=== PATIENT | male | born 1965 | race African-American/Black ===

== ENCOUNTER 2017-12-23 14:23 | Inpatient (IN) | payer OTHER ==
[2017-12-23 16:01] VITALS: BMI 25.0
--- NOTE | 2017-12-23 16:24 | HP ---
Admission [facility] Chief Complaint: Rehab Services Allergies/Adverse Reactions: Allergies Allergy/AdvReac Type Severity Reaction Status Date / Time No Known Allergies Allergy Verified 07/10/15 12:12 History of Present Illness: 52 y.o. man with a history of alcohol and crack-cocaine dependence is here seeking rehab services. He reports he last completed detox and rehab in 06/2017 at [facility]. Longest period of sobriety has been 7 years. Exam Limitations: No Limitations - Ebola screening Have you traveled outside of the country in the last 21 days: No (N) Have you had contact with anyone from an Ebola affected area: No Have you been sick,other than usual withdrawal symptoms: No Do you have a fever: No - Review of Systems Constitutional: Unintentional Wgt. Loss EENT: reports: Blurred Vision Respiratory: reports: Shortness of Breath Cardiac: reports: No Symptoms Reported GI: reports: Diarrhea : reports: No Symptoms Reported Musculoskeletal: reports: Back Pain Integumentary: reports: No Symptoms Reported Neuro: reports: Numbness (Peripheral neuropathy) Endocrine: reports: Other (Borderline diabetic) Hematology: reports: No Symptoms Reported Psychiatric: reports: Orientated x3 Other Systems: Reviewed and Negative Patient History - Patient Medical History Hx Anemia: No Hx Asthma: No Hx Chronic Obstructive Pulmonary Disease (COPD): No Hx Cancer: No Hx Cardiac Disorders: Yes (H/o afib ) Hx Congestive Heart Failure: No Hx Hypertension: No Hx Hypercholesterolemia: No Hx Pacemaker: No HX Cerebrovascular Accident: No Hx Seizures: No Hx Dementia: No Hx Diabetes: No Hx Gastrointestinal Disorders: Yes (GERD) Hx Liver Disease: No Hx Genitourinary Disorders: No Hx Sexually Transmitted Disorders: Yes (Hx of gonnorhea.) Hx Renal Disease (ESRD): No Hx Thyroid Disease: No Hx Human Immunodeficiency Virus (HIV): No Hx Hepatitis C: No Hx Depression: No Hx Suicide Attempt: No Hx Bipolar Disorder: No Hx Schizophrenia: No - Patient Surgical History Past Surgical History: Yes Hx Orthopedic Surgery: Yes (L arm fx sx in 2003) Other Surgical History: R inguinal hernia repair in 2000 - PPD History Previous Implant?: No (02/23/17 CXR RESULTS: WNL; NO ACTIVE PULMONARY DISEAE; NO TB ) - Reproductive History Patient is a Female of Child Bearing Age (11 -55 yrs old): No - Smoking Cessation Smoking history: Current every day smoker Have you smoked in the past 12 months: Yes Aproximately how many cigarettes per day: 10 Hx Chewing Tobacco Use: No Initiated information on smoking cessation: Yes 'Breaking Loose' booklet given: 12/23/17 - Substance & Tx. History Hx Alcohol Use: Yes Hx Substance Use: Yes Substance Use Type: Alcohol, Cocaine Hx Substance Use Treatment: Yes (DETOX/REHAB: 06/2017 AT [facility] ) - Substances Abused Alcohol Route: Oral Frequency: 3-6 times per week Amount used: 2-3 6-PACKS OF BEER Age of first use: 14 Date of Last Use: 12/21/17 Crack Route: Inhalation Frequency: Daily Amount used: $400 Age of first use: 23 Date of Last Use: 12/21/17 Family Disease History - Family Disease History Family Disease History: Other: Father (drug and alcohol depen) Admission Physical Exam [facility] - Vital Signs Vital Signs: Vital Signs - 24 hr 12/23/17 15:59 Temperature 96.9 F L Pulse Rate 58 L Respiratory 17 Rate Blood Pressure 155/87 - Physical General Appearance: Yes: Disheveled, Anxious HEENTM: Yes: Normocephalic, Normal Voice, Other (Hard of hearing) Respiratory: Yes: Chest Non-Tender, Lungs Clear, Normal Breath Sounds Neck: Yes: Other Breast: Yes: Breast Exam Deferred Cardiology: Yes: Regular Rate, S1, S2 Abdominal: Yes: Normal Bowel Sounds, Non Tender, Flat Back: Yes: Normal Inspection Musculoskeletal: Yes: Within Normal Limits Extremities: Yes: Normal Inspection, Normal Range of Motion Neurological: Yes: Fully Oriented, Alert, Motor Strength 5/5 Integumentary: Yes: Within Normal Limits, Normal Color, Dry Lymphatic: Yes: Within Normal Limits - Diagnostic (1) Nicotine dependence Current Visit: Yes Status: Chronic (2) Afib Current Visit: Yes Status: Resolved (3) Alcohol dependence with uncomplicated withdrawal Current Visit: Yes Status: Chronic (4) Hearing loss Current Visit: Yes Status: Chronic Qualifiers: Laterality: bilateral Qualified Code(s): H91.93 - Unspecified hearing loss , bilateral (5) Cocaine dependence with withdrawal Current Visit: Yes Status: Chronic Cleared for Admission [facility] - Detox or Rehab [facility] Level of Care: Observation Bed Claeared for Rehab Admission: Yes [facility] Breath Alcohol Content Breath Alcohol Content: 0 Urine Drug Screen - Results Drug Screen Negative: No Urine Drug Screen Results: THC-Marijuana, AMBER-Cocaine Inpatient Rehab Admission - Initial Determination Are CD services needed?: Yes Free of communicable disease: Yes Not in need of hospitalization: Yes - Rehab Admission Criteria Previous failed treatment: Yes Poor recovery environment: Yes Comorbidities: Yes Lacks judgement: Yes Patient is meeting Inpatient Rehab admission criteria:: Yes
[2017-12-23] MEDS ORDERED: guaiFENesin/D-METHORPHAN HB 10 ML UNIT-DOSE CUPS PO PRN (16:45)
[2017-12-23] MEDS ORDERED: LOPERAMIDE HCL 2 MG CAPSULE PO PRN (16:45)
[2017-12-23] MEDS ORDERED: MENTHOL/PHENOL 1 EACH UD MM PRN (16:45)
[2017-12-23] MEDS ORDERED: NICOTINE POLACRILEX 2 MG GUM BC PRN (16:45)
[2017-12-23] MEDS ORDERED: MAGNESIUM HYDROX 2400MG/30ML ORAL SUSPENSION 30 ML CUP PO PRN (16:45)
[2017-12-23] MEDS ORDERED: ACETAMINOPHEN 325 MG TABLET (FP) PO PRN (16:45)
[2017-12-23] MEDS ORDERED: MAGNESIUM CITRATE 300 ML BOTTLE PO PRN (16:45)
[2017-12-23] MEDS ORDERED: hydrOXYzine PAMOATE 50 MG CAPSULE (FP) PO PRN (16:45)
[2017-12-23] MEDS ORDERED: P-EPHED 60MG/TRIPROLIDI 2.5MG TABLET PO PRN (16:45)
[2017-12-23] MEDS: THIAMINE HCL 100 MG TABLET (FP) PO SCH (21:24)
[2017-12-24] MEDS: IBUPROFEN 400 MG TABLET (FP) PO PRN ×2 (07:04→20:26)
--- NOTE | 2017-12-24 09:47 | EKG ---
Test Reason : Blood Pressure : / mmHG Vent. Rate : 061 BPM Atrial Rate : 061 BPM P-R Int : 174 ms QRS Dur : 080 ms QT Int : 428 ms P-R-T Axes : 062 058 039 degrees QTc Int : 430 ms NORMAL SINUS RHYTHM POSSIBLE LEFT ATRIAL ENLARGEMENT NO PREVIOUS ECGS AVAILABLE Confirmed by JUNE OCHOA MD ([id number]) on 12/24/2017 9:47:01 AM Referred By: Confirmed By:JUNE OCHOA MD
[2017-12-24 09:57] LABS: HEMATOCRIT 41.8 % (35.4-49); HEMOGLOBIN 13.6 GM/dL (11.7-16.9); MCH 26.7 pg (25.7-33.7); MCHC 32.6 g/dl (32.0-35.9); PLATELET COUNT 150 K/MM3 (134-434); RBC 5.09 M/mm3 (4.00-5.60); RDW 12.9 % (11.9-15.9); WHITE BLOOD COUNT 3.1 K/mm3 (4.0-10.0)
[2017-12-24 10:00] LABS: ALBUMIN 3.6 g/dl (3.4-5.0); ANION GAP 9 (8-16); BLOOD UREA NITROGEN 14 mg/dL (7-18); CALCIUM 8.7 mg/dL (8.5-10.1); CHLORIDE 107 mmol/L (98-107); CO2 27 mmol/L (21-32); GLUCOSE,RANDOM 120 mg/dL (74-106); POTASSIUM 3.8 mmol/L (3.5-5.1); SODIUM 143 mmol/L (136-145)
[2017-12-24] MEDS: NICOTINE 14 MG/24 HOURS TOPICAL PATCH TD SCH (10:08)
[2017-12-24] MEDS: PRENATAL VITAMINS W/ FOLIC ACID TABLET (FP) PO SCH (10:08)
[2017-12-24] MEDS: ASPIRIN 81 MG CHEWABLE TABLETS PO SCH (10:08)
[2017-12-24 10:09] LABS: ALK PHOS 59 U/L (45-117); BILIRUBIN,TOTAL 0.2 mg/dL (0.2-1.0); CREATININE 1.3 mg/dL (0.7-1.3); SGPT/ALT 22 U/L (12-78); TOT PROT 6.5 g/dl (6.4-8.2)
[2017-12-24 10:14] LABS: SGOT/AST 17 U/L (15-37)
[2017-12-24] MEDS: THIAMINE HCL 100 MG TABLET (FP) PO SCH (23:24)
[2017-12-25] MEDS: PRENATAL VITAMINS W/ FOLIC ACID TABLET (FP) PO SCH (10:17)
[2017-12-25] MEDS: NICOTINE 14 MG/24 HOURS TOPICAL PATCH TD SCH (10:17)
[2017-12-25] MEDS: ASPIRIN 81 MG CHEWABLE TABLETS PO SCH (10:17)
[2017-12-25 14:38] LABS: URINE APPEARANCE CLEAR; URINE COLOR YELLOW
[2017-12-25 14:39] LABS: URINE BILIRUBIN NEGATIVE (<2.0 mg/dL); URINE GLUCOSE (UA) NEGATIVE (NEGATIVE); URINE KETONE NEGATIVE (NEGATIVE); URINE LEUK ESTERASE NEGATIVE (NEGATIVE); URINE NITRITE NEGATIVE (NEGATIVE); URINE PROTEIN NEGATIVE (NEGATIVE); URINE UROBILINOGEN 0.2 mg/dL (0.2-1.0)
[2017-12-25] MEDS: IBUPROFEN 400 MG TABLET (FP) PO PRN (19:12)
[2017-12-25] MEDS: THIAMINE HCL 100 MG TABLET (FP) PO SCH (21:35)
[2017-12-26] MEDS: ASPIRIN 81 MG CHEWABLE TABLETS PO SCH (10:33)
[2017-12-26] MEDS: PRENATAL VITAMINS W/ FOLIC ACID TABLET (FP) PO SCH (10:34)
[2017-12-26] MEDS: NICOTINE 14 MG/24 HOURS TOPICAL PATCH TD SCH (10:34)
[2017-12-26] MEDS: IBUPROFEN 400 MG TABLET (FP) PO PRN (18:55)
[2017-12-26] MEDS: THIAMINE HCL 100 MG TABLET (FP) PO SCH (21:42)
[2017-12-26] MEDS: MAG HYDROX/AL HYDROX/SIMETH 30 ML UNIT-DOSE CUP PO PRN (23:55)
[2017-12-27] MEDS: MAG HYDROX/AL HYDROX/SIMETH 30 ML UNIT-DOSE CUP PO PRN (08:52)
[2017-12-27] MEDS: NICOTINE 14 MG/24 HOURS TOPICAL PATCH TD SCH (10:48)
[2017-12-27] MEDS: PRENATAL VITAMINS W/ FOLIC ACID TABLET (FP) PO SCH (10:48)
[2017-12-27] MEDS: ASPIRIN 81 MG CHEWABLE TABLETS PO SCH (10:48)
[2017-12-27] MEDS ORDERED: ONDANSETRON *ODT* 4 MG TABLET SL PRN (12:16)
--- NOTE | 2017-12-27 12:17 | PN ---
[facility] Progress Note Note: Vital Signs Temperature 98.7 F 12/27/17 07:05 Pulse Rate 55 L 12/27/17 07:05 Respiratory Rate 18 12/27/17 07:05 Blood Pressure 113/55 12/27/17 07:05 O2 Sat by Pulse Oximetry (%) Laboratory Last Values WBC 3.1 K/mm3 (4.0-10.0) L 12/24/17 08:00 RBC 5.09 M/mm3 (4.00-5.60) 12/24/17 08:00 Hgb 13.6 GM/dL (11.7-16.9) 12/24/17 08:00 Hct 41.8 % (35.4-49) 12/24/17 08:00 MCV 82.0 fl (80-96) 12/24/17 08:00 MCH 26.7 pg (25.7-33.7) 12/24/17 08:00 MCHC 32.6 g/dl (32.0-35.9) 12/24/17 08:00 RDW 12.9 % (11.9-15.9) 12/24/17 08:00 Plt Count 150 K/MM3 (134-434) 12/24/17 08:00 MPV 10.0 fl (7.5-11.1) 12/24/17 08:00 Sodium 143 mmol/L (136-145) 12/24/17 08:00 Potassium 3.8 mmol/L (3.5-5.1) 12/24/17 08:00 Chloride 107 mmol/L (98-107) 12/24/17 08:00 Carbon Dioxide 27 mmol/L (21-32) 12/24/17 08:00 Anion Gap 9 (8-16) 12/24/17 08:00 BUN 14 mg/dL (7-18) 12/24/17 08:00 Creatinine 1.3 mg/dL (0.7-1.3) 12/24/17 08:00 Creat Clearance w eGFR 58.20 (>60) 12/24/17 08:00 Random Glucose 120 mg/dL (74-106) H 12/24/17 08:00 Calcium 8.7 mg/dL (8.5-10.1) 12/24/17 08:00 Total Bilirubin 0.2 mg/dL (0.2-1.0) 12/24/17 08:00 AST 17 U/L (15-37) D 12/24/17 08:00 ALT 22 U/L (12-78) D 12/24/17 08:00 Alkaline Phosphatase 59 U/L (45-117) 12/24/17 08:00 Total Protein 6.5 g/dl (6.4-8.2) 12/24/17 08:00 Albumin 3.6 g/dl (3.4-5.0) 12/24/17 08:00 Urine Color Yellow 12/25/17 13:47 Urine Appearance Clear 12/25/17 13:47 Urine pH 7.0 (5.0-8.0) 12/25/17 13:47 Ur Specific [place] 1.010 (1.001-1.035) 12/25/17 13:47 Urine Protein Negative (NEGATIVE) 12/25/17 13:47 Urine Glucose (UA) Negative (NEGATIVE) 12/25/17 13:47 Urine Ketones Negative (NEGATIVE) 12/25/17 13:47 Urine Blood Negative (NEGATIVE) 12/25/17 13:47 Urine Nitrite Negative (NEGATIVE) 12/25/17 13:47 Urine Bilirubin Negative (<2.0 mg/dL) 12/25/17 13:47 Urine Urobilinogen 0.2 mg/dL (0.2-1.0) 12/25/17 13:47 Ur Leukocyte Esterase Negative (NEGATIVE) 12/25/17 13:47 RPR Titer Nonreactive (NONREACTIVE) 12/24/17 08:00 Hep C Ab Diagnostic <0.1 s/co ratio (0.0-0.9) 12/24/17 08:00 Liver Fibrosis Interp (.) 12/24/17 08:00 HIV 1&2 Antibody Screen Negative 12/24/17 08:00 HIV P24 Antigen Negative 12/24/17 08:00 c/o of nausea and vomiting zofran PRN fluids as tolerated continue to monitor
[2017-12-27] MEDS: THIAMINE HCL 100 MG TABLET (FP) PO SCH (22:09)
[2017-12-27] MEDS: COLLOIDAL OATMEAL 1 BAR EACH TP PRN (22:34)
[2017-12-28] MEDS: ASPIRIN 81 MG CHEWABLE TABLETS PO SCH (09:47)
[2017-12-28] MEDS: PRENATAL VITAMINS W/ FOLIC ACID TABLET (FP) PO SCH (09:47)
[2017-12-28] MEDS: NICOTINE 14 MG/24 HOURS TOPICAL PATCH TD SCH (09:48)
[2017-12-28] MEDS: THIAMINE HCL 100 MG TABLET (FP) PO SCH (21:14)
[2017-12-29] MEDS: ASPIRIN 81 MG CHEWABLE TABLETS PO SCH (10:49)
[2017-12-29] MEDS: PRENATAL VITAMINS W/ FOLIC ACID TABLET (FP) PO SCH (10:50)
[2017-12-29] MEDS: NICOTINE 14 MG/24 HOURS TOPICAL PATCH TD SCH (10:50)
[2017-12-29] MEDS: IBUPROFEN 400 MG TABLET (FP) PO PRN (12:09)
--- NOTE | 2017-12-29 13:06 | PN ---
[facility] Progress Note Note: c/o of itchy rash on face. Vital Signs Temperature 97.7 F 12/29/17 06:41 Pulse Rate 45 L 12/29/17 06:41 Respiratory Rate 18 12/29/17 06:41 Blood Pressure 125/73 12/29/17 06:41 O2 Sat by Pulse Oximetry (%) Laboratory Last Values WBC 3.1 K/mm3 (4.0-10.0) L 12/24/17 08:00 RBC 5.09 M/mm3 (4.00-5.60) 12/24/17 08:00 Hgb 13.6 GM/dL (11.7-16.9) 12/24/17 08:00 Hct 41.8 % (35.4-49) 12/24/17 08:00 MCV 82.0 fl (80-96) 12/24/17 08:00 MCH 26.7 pg (25.7-33.7) 12/24/17 08:00 MCHC 32.6 g/dl (32.0-35.9) 12/24/17 08:00 RDW 12.9 % (11.9-15.9) 12/24/17 08:00 Plt Count 150 K/MM3 (134-434) 12/24/17 08:00 MPV 10.0 fl (7.5-11.1) 12/24/17 08:00 Sodium 143 mmol/L (136-145) 12/24/17 08:00 Potassium 3.8 mmol/L (3.5-5.1) 12/24/17 08:00 Chloride 107 mmol/L (98-107) 12/24/17 08:00 Carbon Dioxide 27 mmol/L (21-32) 12/24/17 08:00 Anion Gap 9 (8-16) 12/24/17 08:00 BUN 14 mg/dL (7-18) 12/24/17 08:00 Creatinine 1.3 mg/dL (0.7-1.3) 12/24/17 08:00 Creat Clearance w eGFR 58.20 (>60) 12/24/17 08:00 Random Glucose 120 mg/dL (74-106) H 12/24/17 08:00 Calcium 8.7 mg/dL (8.5-10.1) 06/30/18 08:00 Total Bilirubin 0.2 mg/dL (0.2-1.0) 12/24/17 08:00 AST 17 U/L (15-37) D 12/24/17 08:00 ALT 22 U/L (12-78) D 12/24/17 08:00 Alkaline Phosphatase 59 U/L (45-117) 12/24/17 08:00 Total Protein 6.5 g/dl (6.4-8.2) 12/24/17 08:00 Albumin 3.6 g/dl (3.4-5.0) 12/24/17 08:00 Urine Color Yellow 12/25/17 13:47 Urine Appearance Clear 12/25/17 13:47 Urine pH 7.0 (5.0-8.0) 12/25/17 13:47 Ur Specific [place] 1.010 (1.001-1.035) 12/25/17 13:47 Urine Protein Negative (NEGATIVE) 12/25/17 13:47 Urine Glucose (UA) Negative (NEGATIVE) 12/25/17 13:47 Urine Ketones Negative (NEGATIVE) 12/25/17 13:47 Urine Blood Negative (NEGATIVE) 12/25/17 13:47 Urine Nitrite Negative (NEGATIVE) 12/25/17 13:47 Urine Bilirubin Negative (<2.0 mg/dL) 12/25/17 13:47 Urine Urobilinogen 0.2 mg/dL (0.2-1.0) 12/25/17 13:47 Ur Leukocyte Esterase Negative (NEGATIVE) 12/25/17 13:47 RPR Titer Nonreactive (NONREACTIVE) 12/24/17 08:00 Hep C Ab Diagnostic <0.1 s/co ratio (0.0-0.9) 12/24/17 08:00 Liver Fibrosis Interp (.) 12/24/17 08:00 HIV 1&2 Antibody Screen Negative 12/24/17 08:00 HIV P24 Antigen Negative 12/24/17 08:00 Patient Ox3 no distress skin intact, no erythema, + cheek pruritus no adventitious breath sounds ambulating in the unit - rash Plan: hydrocortisone top PRN continue to monitor
--- NOTE | 2017-12-29 15:16 | HP ---
Psychiatrist Admission - Data Date of interview: 12/29/17 Admission source: [facility] Identifying data: Patient is a 52 year old single male, father of two, domiciled and currently employed. This is patient's first admission to rehab at [facility]. Patient admitted for alcohol and cocaine dependence. Medical History: h/o afib, gerd, L arm fx sx in 2003, R inguinal hernia repair in 2000, hearing loss Psychiatric History: Patient denies h/o psychiatric hospitalizations and suicide attempt. Reports seeing a psychiatrist while attending the [facility] outpatient program in 2017 but was not prescribed psychotropic medications. States he only spoke to the psychiatrist about issues related to his substance abuse. Pt. currently denies suicidal and homicidal ideation. Physical/Sexual Abuse/Trauma History: Denies. Additional Comment: Served in the [employer] from [id number] Vital Signs: Vital Signs - 24 hr 12/29/17 12/29/17 12/29/17 00:30 03:30 06:41 Temperature 97.7 F Pulse Rate 45 L Respiratory 18 18 18 Rate Blood Pressure 125/73 Allergies/Adverse Reactions: Allergies Allergy/AdvReac Type Severity Reaction Status Date / Time No Known Allergies Allergy Verified 12/23/17 17:52 Date of last physical exam: 12/23/17 Concur with the findings of this exam: Yes - Substance Abuse/Tx History Hx Alcohol Use: Yes (2 six packs per day) Hx Substance Use: Yes Substance Use Type: Cocaine (2 grams per day) Hx Substance Use Treatment: Yes ([facility] in 2016) Mental Status Exam - Mental Status Exam Alert and Oriented to: Time, Place, Person Cognitive Function: Good Patient Appearance: Well Groomed Mood: Hopeful Affect: Mood Congruent Patient Behavior: Appropriate Speech Pattern: Clear Voice Loudness: Normal Thought Process: Intact, Goal Oriented Thought Disorder: Not Present Hallucinations: Denies Suicidal Ideation: Denies Homicidal Ideation: Denies Insight/Judgement: Poor Sleep: Poorly Appetite: Fair Muscle strength/Tone: Normal Gait/Station: Normal Psychiatric Findings - Problem List ([place] 1, 2,3) (1) Alcohol dependence with uncomplicated withdrawal Current Visit: Yes Status: Chronic (2) Cocaine dependence with withdrawal Current Visit: Yes Status: Chronic (3) Hearing loss Current Visit: Yes Status: Chronic Qualifiers: Laterality: bilateral Qualified Code(s): H91.93 - Unspecified hearing loss , bilateral (4) Nicotine dependence Current Visit: Yes Status: Chronic (5) Insomnia Current Visit: Yes Status: Acute - Initial Treatment Plan Initial Treatment Plan: Psychoeducation provided. Detoxification in progress. Pt. informed that melatonin 5mg is ordered for insomnia.
[2017-12-29] MEDS: THIAMINE HCL 100 MG TABLET (FP) PO SCH (21:46)
[2017-12-30] MEDS: NICOTINE 14 MG/24 HOURS TOPICAL PATCH TD SCH (09:51)
[2017-12-30] MEDS: ASPIRIN 81 MG CHEWABLE TABLETS PO SCH (09:51)
[2017-12-30] MEDS: PRENATAL VITAMINS W/ FOLIC ACID TABLET (FP) PO SCH (09:51)
[2017-12-30] MEDS: HYDROCORTISONE 1% TOPICAL CREAM 30 GM TUBE TP PRN (09:52)
[2017-12-30] MEDS: IBUPROFEN 400 MG TABLET (FP) PO PRN (15:55)
[2017-12-30] MEDS: THIAMINE HCL 100 MG TABLET (FP) PO SCH (21:16)
[2017-12-31] MEDS: NICOTINE 14 MG/24 HOURS TOPICAL PATCH TD SCH (10:09)
[2017-12-31] MEDS: ASPIRIN 81 MG CHEWABLE TABLETS PO SCH (10:09)
[2017-12-31] MEDS: PRENATAL VITAMINS W/ FOLIC ACID TABLET (FP) PO SCH (10:09)
[2017-12-31] MEDS: IBUPROFEN 400 MG TABLET (FP) PO PRN (14:50)
[2017-12-31] MEDS: THIAMINE HCL 100 MG TABLET (FP) PO SCH (21:15)
[2018-01-01] MEDS: NICOTINE 14 MG/24 HOURS TOPICAL PATCH TD SCH (09:58)
[2018-01-01] MEDS: PRENATAL VITAMINS W/ FOLIC ACID TABLET (FP) PO SCH (09:58)
[2018-01-01] MEDS: ASPIRIN 81 MG CHEWABLE TABLETS PO SCH (09:58)
[2018-01-01] MEDS: IBUPROFEN 400 MG TABLET (FP) PO PRN (18:33)
[2018-01-01] MEDS: THIAMINE HCL 100 MG TABLET (FP) PO SCH (21:17)
[2018-01-02] MEDS: COLLOIDAL OATMEAL 1 BAR EACH TP PRN (07:25)
[2018-01-02] MEDS: PRENATAL VITAMINS W/ FOLIC ACID TABLET (FP) PO SCH (10:26)
[2018-01-02] MEDS: HYDROCORTISONE 1% TOPICAL CREAM 30 GM TUBE TP PRN (10:26)
[2018-01-02] MEDS: NICOTINE 14 MG/24 HOURS TOPICAL PATCH TD SCH (10:26)
[2018-01-02] MEDS: ASPIRIN 81 MG CHEWABLE TABLETS PO SCH (10:26)
[2018-01-02] MEDS: THIAMINE HCL 100 MG TABLET (FP) PO SCH (21:21)
[2018-01-03] MEDS: NICOTINE 14 MG/24 HOURS TOPICAL PATCH TD SCH (10:13)
[2018-01-03] MEDS: PRENATAL VITAMINS W/ FOLIC ACID TABLET (FP) PO SCH (10:13)
[2018-01-03] MEDS: ASPIRIN 81 MG CHEWABLE TABLETS PO SCH (10:13)
[2018-01-03] MEDS: IBUPROFEN 400 MG TABLET (FP) PO PRN (10:14)
[2018-01-03] MEDS: HYDROCORTISONE 1% TOPICAL CREAM 30 GM TUBE TP PRN (10:15)
--- NOTE | 2018-01-03 12:56 | PN ---
[facility] Progress Note Note: Patient c/o of low back pain which radiates down to the left lower extremity. Patient reports while outpatient he was self medicating with Ibuprofen with some relief. patient reports pain 10/10 at this time, worsen with movement, relieved with rest. Denies paresthesia or incontinence. Vital Signs Temperature 98.4 F 01/03/18 06:50 Pulse Rate 50 L 01/03/18 06:50 Respiratory Rate 18 01/03/18 06:50 Blood Pressure 136/85 01/03/18 06:50 O2 Sat by Pulse Oximetry (%) Laboratory Last Values WBC 3.1 K/mm3 (4.0-10.0) L 12/24/17 08:00 RBC 5.09 M/mm3 (4.00-5.60) 12/24/17 08:00 Hgb 13.6 GM/dL (11.7-16.9) 12/24/17 08:00 Hct 41.8 % (35.4-49) 12/24/17 08:00 MCV 82.0 fl (80-96) 12/24/17 08:00 MCH 26.7 pg (25.7-33.7) 12/24/17 08:00 MCHC 32.6 g/dl (32.0-35.9) 12/24/17 08:00 RDW 12.9 % (11.9-15.9) 12/24/17 08:00 Plt Count 150 K/MM3 (134-434) 12/24/17 08:00 MPV 10.0 fl (7.5-11.1) 12/24/17 08:00 Sodium 143 mmol/L (136-145) 12/24/17 08:00 Potassium 3.8 mmol/L (3.5-5.1) 12/24/17 08:00 Chloride 107 mmol/L (98-107) 12/24/17 08:00 Carbon Dioxide 27 mmol/L (21-32) 12/24/17 08:00 Anion Gap 9 (8-16) 12/24/17 08:00 BUN 14 mg/dL (7-18) 12/24/17 08:00 Creatinine 1.3 mg/dL (0.7-1.3) 12/24/17 08:00 Creat Clearance w eGFR 58.20 (>60) 12/24/17 08:00 Random Glucose 120 mg/dL (74-106) H 12/24/17 08:00 Calcium 8.7 mg/dL (8.5-10.1) 12/24/17 08:00 Total Bilirubin 0.2 mg/dL (0.2-1.0) 12/24/17 08:00 AST 17 U/L (15-37) D 12/24/17 08:00 ALT 22 U/L (12-78) D 12/24/17 08:00 Alkaline Phosphatase 59 U/L (45-117) 12/24/17 08:00 Total Protein 6.5 g/dl (6.4-8.2) 12/24/17 08:00 Albumin 3.6 g/dl (3.4-5.0) 12/24/17 08:00 Urine Color Yellow 12/25/17 13:47 Urine Appearance Clear 12/25/17 13:47 Urine pH 7.0 (5.0-8.0) 12/25/17 13:47 Ur Specific [place] 1.010 (1.001-1.035) 12/25/17 13:47 Urine Protein Negative (NEGATIVE) 12/25/17 13:47 Urine Glucose (UA) Negative (NEGATIVE) 12/25/17 13:47 Urine Ketones Negative (NEGATIVE) 12/25/17 13:47 Urine Blood Negative (NEGATIVE) 12/25/17 13:47 Urine Nitrite Negative (NEGATIVE) 12/25/17 13:47 Urine Bilirubin Negative (<2.0 mg/dL) 12/25/17 13:47 Urine Urobilinogen 0.2 mg/dL (0.2-1.0) 12/25/17 13:47 Ur Leukocyte Esterase Negative (NEGATIVE) 12/25/17 13:47 RPR Titer Nonreactive (NONREACTIVE) 12/24/17 08:00 Hep C Ab Diagnostic <0.1 s/co ratio (0.0-0.9) 12/24/17 08:00 Liver Fibrosis Interp (.) 12/24/17 08:00 HIV 1&2 Antibody Screen Negative 12/24/17 08:00 HIV P24 Antigen Negative 12/24/17 08:00 A/P Patient AOx3 no distress no adventitious breath sounds Full ROM ambulating in the unit, + low back pain and + limp - low back pain with left sciatic Plan: ambulate increase fluids flexeril 5mg TID Ibuprofen 600mg TID lidocaine patch continue to monitor
[2018-01-03] MEDS: CYCLOBENZAPRINE HCL 5 MG TABLET PO SCH ×2 (14:23→22:02)
[2018-01-03] MEDS: LIDOCAINE 5% TOPICAL PATCH TP SCH (14:23)
[2018-01-03] MEDS: THIAMINE HCL 100 MG TABLET (FP) PO SCH (22:02)
[2018-01-03] MEDS: LIDOCAINE PATCH REMOVAL MC SCH (22:02)
[2018-01-04] MEDS: CYCLOBENZAPRINE HCL 5 MG TABLET PO SCH ×3 (07:46→21:30)
[2018-01-04] MEDS: ASPIRIN 81 MG CHEWABLE TABLETS PO SCH (10:08)
[2018-01-04] MEDS: PRENATAL VITAMINS W/ FOLIC ACID TABLET (FP) PO SCH (10:08)
[2018-01-04] MEDS: NICOTINE 14 MG/24 HOURS TOPICAL PATCH TD SCH (10:08)
[2018-01-04] MEDS: HYDROCORTISONE 1% TOPICAL CREAM 30 GM TUBE TP PRN (10:09)
[2018-01-04] MEDS: IBUPROFEN 600 MG TABLET (FP) PO PRN (10:11)
[2018-01-04] MEDS: LIDOCAINE 5% TOPICAL PATCH TP SCH (10:23)
[2018-01-04] MEDS: THIAMINE HCL 100 MG TABLET (FP) PO SCH (21:30)
[2018-01-04] MEDS: LIDOCAINE PATCH REMOVAL MC SCH (21:31)
[2018-01-04] MEDS: MELATONIN 5 MG TABLETS PO PRN (21:32)
[2018-01-05] MEDS: CYCLOBENZAPRINE HCL 5 MG TABLET PO SCH ×3 (06:32→21:17)
[2018-01-05] MEDS: ASPIRIN 81 MG CHEWABLE TABLETS PO SCH (09:47)
[2018-01-05] MEDS: LIDOCAINE 5% TOPICAL PATCH TP SCH (09:48)
[2018-01-05] MEDS: NICOTINE 14 MG/24 HOURS TOPICAL PATCH TD SCH (09:48)
[2018-01-05] MEDS: PRENATAL VITAMINS W/ FOLIC ACID TABLET (FP) PO SCH (09:48)
[2018-01-05] MEDS: IBUPROFEN 600 MG TABLET (FP) PO PRN (19:06)
[2018-01-05] MEDS: MELATONIN 5 MG TABLETS PO PRN (21:17)
[2018-01-05] MEDS: LIDOCAINE PATCH REMOVAL MC SCH (21:17)
[2018-01-05] MEDS: THIAMINE HCL 100 MG TABLET (FP) PO SCH (21:17)
[2018-01-06] MEDS: CYCLOBENZAPRINE HCL 5 MG TABLET PO SCH (06:10)
[2018-01-06 06:22] VITALS: BP 129/77; PULSE 53; TEMP 98
--- NOTE | 2018-01-06 08:48 | PN ---
Psychiatric Progress Note Vital Signs: Vital Signs Period Temp Pulse Resp BP Sys/Carter Pulse Ox Last 24 Hr 98.0 F 52-53 18-18 129/77 Date of Session: 01/06/18 Chief Complaint:: "DISCHARGE" HPI: Patient admitted for alcohol and cocaine dependence. ROS: h/o afib, gerd, L arm fx sx in 2003, R inguinal hernia repair in 2000, hearing loss Current Medications: Active Medications Generic Name Dose Route Start Last Admin Trade Name Freq PRN Reason Stop Dose Admin Acetaminophen 650 mg 12/23/17 16:45 Tylenol - PO Q4H PRN FEVER Al Hydroxide/Mg Hydroxide 30 ml 12/23/17 16:45 12/27/17 08:52 Mylanta Oral Suspension - PO 30 ml Q6H PRN Administration DYSPEPSIA Aspirin 81 mg 12/24/17 10:00 01/05/18 09:47 Asa - PO 81 mg DAILY STACI Administration Colloidal Oatmeal 1 applic 12/26/17 10:44 01/02/18 07:25 Aveeno Soap - TP 1 applic DAILY PRN Administration HYGEINE Cyclobenzaprine HCl 5 mg 01/03/18 14:00 01/06/18 06:10 Cyclobenzaprine Hcl PO 5 mg TID STACI Administration Eucalyptus/Menthol/Phenol/Sorbitol 1 each 12/23/17 16:45 Cepastat Lozenge - MM Q4H PRN SORE THROAT Guaifenesin 10 ml 12/23/17 16:45 Robitussin Dm - PO Q6H PRN COUGH Hydrocortisone 1 applic 12/29/17 13:03 01/04/18 10:09 Hytone 1% Cream - TP 1 applic BID PRN Administration itch Hydroxyzine Pamoate 50 mg 12/23/17 16:45 Vistaril - PO Q4H PRN AGITATION Ibuprofen 600 mg 01/03/18 12:53 01/05/18 19:06 Motrin - PO 600 mg Q8H PRN Administration PAIN LEVEL 6-10 Lidocaine 1 patch 01/03/18 13:00 01/05/18 09:48 Lidoderm Patch - TP 1 patch DAILY STACI Administration Loperamide HCl 4 mg 12/23/17 16:45 Imodium - PO Q6H PRN DIARRHEA Magnesium Citrate 300 ml 12/23/17 16:45 Citroma - PO Q48H PRN CONSTIPATION Magnesium Hydroxide 30 ml 12/23/17 16:45 Milk Of Magnesia - PO DAILY PRN CONSTIPATION Melatonin 5 mg 12/23/17 22:00 01/05/18 21:17 Melatonin PO 5 mg HS PRN Administration INSOMNIA Miscellaneous 1 each 01/03/18 22:00 01/05/18 21:17 Lidoderm Patch Removal MC Not Given DAILY@2200 STACI Nicotine 14 mg 12/24/17 10:00 01/05/18 09:48 Nicoderm Patch - TD 14 mg DAILY STACI Administration Nicotine Polacrilex 2 mg 12/23/17 16:45 12/24/17 07:59 Nicorette Gum - BC 2 mg Q2H PRN Administration NICOTINE REPLACEMENT RX Ondansetron HCl 4 mg 12/27/17 12:16 Zofran Odt - SL Q6H PRN NAUSEA AND/OR VOMITING Multivit/Folic Acid/Iron 1 tab 12/24/17 10:00 01/05/18 09:48 Vitamins (Sjr) - PO 1 tab DAILY STACI Administration Pseudoephedrine/Triprolidine 1 combo 12/23/17 16:45 Actifed - PO TID PRN NASAL CONGESTION Thiamine HCl 100 mg 12/23/17 22:00 01/05/18 21:17 Vitamin B1 - PO 100 mg HS STACI Administration Medication(s) Change(s): No. Current Side Effect: No Lab tests ordered: No Lab tests reviewed: Yes Provider note:: Patient will complete this program on 01/06/18. He has met his treatment goals and is able to identify behaviors that contribute to relapsing. Through participation of this program patient has learned the importance of changing his behaviors and the need for more structure in his life. Patient is stable for discharge on 01/06/18. Total face to face time:: 35 Mental Status Exam - Mental Status Exam Alert and Oriented to: Time, Place, Person Cognitive Function: Good Patient Appearance: Well Groomed Mood: Hopeful Affect: Appropriate, Mood Congruent Patient Behavior: Appropriate, Cooperative Speech Pattern: Clear, Appropriate Voice Loudness: Normal Thought Process: Intact, Goal Oriented Thought Disorder: Not Present Hallucinations: Denies Suicidal Ideation: Denies Homicidal Ideation: Denies Insight/Judgement: Good Sleep: Well Muscle strength/Tone: Normal Gait/Station: Normal Psychiatric Treatment Plan - Problem List (1) Hearing loss Current Visit: Yes Qualifiers: Laterality: bilateral Qualified Code(s): H91.93 - Unspecified hearing loss , bilateral (2) Nicotine dependence Current Visit: Yes (3) Insomnia Current Visit: Yes (4) Alcohol dependence Current Visit: Yes (5) Cocaine dependence Current Visit: Yes
[2018-01-06] MEDS: PRENATAL VITAMINS W/ FOLIC ACID TABLET (FP) PO SCH (10:00)
[2018-01-06] MEDS: LIDOCAINE 5% TOPICAL PATCH TP SCH (10:00)
[2018-01-06] MEDS: ASPIRIN 81 MG CHEWABLE TABLETS PO SCH (10:00)
[2018-01-06] MEDS: NICOTINE 14 MG/24 HOURS TOPICAL PATCH TD SCH (10:01)
== END 2018-01-06 11:05 | disposition home or self-care (01) | DRG 772 ==
LOC: YASAS 14:23 → Y5N 18:55
PROVIDERS: ADMIT Psychiatry & Neurology Psychiatry; ATTEND Psychiatry & Neurology Psychiatry
PROC: HZ42ZZZ Group Counseling for Substance Abuse Treatment, Cognitive-Behavioral (ICD-10-PCS; principal; 2017-12-23)
DX: F10.20 Alcohol dependence, uncomplicated (principal); F14.20 Cocaine dependence, uncomplicated; F17.210 Nicotine dependence, cigarettes, uncomplicated; G47.00 Insomnia, unspecified; I48.91 Unspecified atrial fibrillation; K21.9 Gastro-esophageal reflux disease without esophagitis; H91.93 Unspecified hearing loss, bilateral; M54.42 Lumbago with sciatica, left side; G89.29 Other chronic pain; Z86.19 Personal history of other infectious and parasitic diseases
CPT/HCPCS: 36415; 80053; 81003; 85027; 86593; 86803; 87389; 93005; 93010

== ENCOUNTER 2024-11-07 16:50 | Inpatient (IN) | payer OTHER ==
[2024-11-07 17:50] VITALS: BMI 27.1
[2024-11-07] MEDS ORDERED: NALOXONE (NARCAN) HCL 4 MG/0.1 ML SPRAY NS PRN (18:36)
[2024-11-07] MEDS ORDERED: POLYETHYLENE GLYCOL (HEALTHYLAX) 3350 17 GM PACKET PO PRN (18:36)
[2024-11-07] MEDS ORDERED: BENZONATATE 200 MG CAPSULE PO PRN (18:36)
[2024-11-07] MEDS ORDERED: NICOTINE POLACRILEX 2 MG GUM BUC PRN (18:36)
[2024-11-07] MEDS ORDERED: BENZOCAINE/MENTHOL (CHLORASEPTIC ) LOZENGE MM PRN (18:36)
[2024-11-07] MEDS ORDERED: LOPERAMIDE HCL 2 MG CAPSULE PO PRN (18:36)
[2024-11-07] MEDS ORDERED: NICOTINE POLACRILEX 2 MG LOZENGE BC PRN (18:36)
[2024-11-07] MEDS ORDERED: IBUPROFEN 600 MG TABLET (FP) PO PRN (18:36)
[2024-11-07] MEDS ORDERED: ACETAMINOPHEN 325 MG TABLET (FP) PO PRN (18:36)
[2024-11-07] MEDS ORDERED: IBUPROFEN 400 MG TABLET (FP) PO PRN (18:36)
[2024-11-07] MEDS ORDERED: guaiFENesin 600 MG TABLET.ER (FP) PO PRN (18:36)
[2024-11-07] MEDS ORDERED: MAGNESIUM HYDROX 2400MG/30ML ORAL SUSPENSION 30 ML CUP PO PRN (18:36)
[2024-11-07] MEDS ORDERED: ALBUTEROL SO4 HFA INHALER IH PRN (21:27)
[2024-11-07] MEDS: TUBERCULIN PPD 5 TU/0.1ML SYRINGE (IN PATIENT USE ONLY) ID ONE (22:07)
[2024-11-07] MEDS: TAMSULOSIN HCL 0.4 MG CAP PO SCH (23:35)
[2024-11-07] MEDS: ATORVASTATIN CA 10 MG TABLET (FP) PO SCH (23:35)
[2024-11-07] MEDS: MELATONIN 5 MG TABLETS PO SCH (23:35)
[2024-11-07] MEDS: THIAMINE 100 MG TABLET PO SCH (23:35)
[2024-11-07] MEDS: amLODIPine BESYLATE 5 MG TABLET (FP) PO ONE ×2 (23:36→23:42)
[2024-11-07] MEDS: ARTIFICIAL TEARS OPHTHALMIC DROPS OD SCH (23:36)
[2024-11-08] MEDS: FAMOTIDINE 20 MG TABLET PO SCH (07:19)
[2024-11-08] MEDS: ASPIRIN 81 MG CHEWABLE TABLETS PO SCH (09:51)
[2024-11-08] MEDS: PRENATAL VITAMINS W/ FOLIC ACID TABLET (FP) PO SCH (09:51)
[2024-11-08] MEDS: FENOFIBRIC ACID 135 MG CAP PO SCH (09:52)
[2024-11-08 11:23] LABS: HEMATOCRIT 48.1 % (40.1-51.0); HEMOGLOBIN 14.6 g/dL (13.7-17.5); MCHC 30.4 g/dl (32.3-36.5); MEAN CELL VOLUME 84.8 fl (79.0-92.2); PLATELET COUNT 155 x10^3/uL (163-337); RDW 12.1 % (12.2-16.1)
[2024-11-08 14:18] LABS: SYPHILIS W/ RPR CONF NON-REACTIVE (NONREACTIVE)
[2024-11-08 14:32] LABS: CHLORIDE 106 mmol/L (98-107); POTASSIUM 4.3 mmol/L (3.5-5.1); SODIUM 140 mmol/L (136-145)
[2024-11-08 14:35] LABS: ALBUMIN 3.7 g/dl (3.4-5.0); ANION GAP 6 mmol/L (4-13); BLOOD UREA NITROGEN 15.4 mg/dL (7-18); CALCIUM 9.4 mg/dL (8.5-10.1); CO2 28 mmol/L (21-32); GLUCOSE,RANDOM 102 mg/dL (74-106)
[2024-11-08 14:38] LABS: SGOT/AST 20 U/L (15-37); SGPT/ALT 25 U/L (13-61)
[2024-11-08 14:40] LABS: BILIRUBIN,TOTAL 0.2 mg/dL (0.2-1); TOT PROT 6.4 g/dl (6.4-8.2)
[2024-11-08 14:41] LABS: ALK PHOS 73 U/L (45-117)
[2024-11-08 14:53] LABS: HCV DIAGNOSTIC IN-HOUSE W/RFLX NON-REACTIVE (NONREACTIVE)
[2024-11-08 16:08] LABS: PH,URINE 6.5 (5.0-8.0); URINE APPEARANCE CLEAR; URINE BILIRUBIN NEGATIVE (NEGATIVE); URINE COLOR YELLOW; URINE GLUCOSE (UA) NEGATIVE (NEGATIVE); URINE KETONE NEGATIVE (NEGATIVE); URINE LEUK ESTERASE NEGATIVE (NEGATIVE); URINE NITRITE NEGATIVE (NEGATIVE); URINE PROTEIN NEGATIVE (NEGATIVE); URINE UROBILINOGEN 0.2 mg/dL (0.2-1.0)
[2024-11-14] MEDS: ACAMPROSATE CALCIUM 333 MG TABLET.DR PO SCH (21:40)
[2024-11-19] MEDS: BACLOFEN 10 MG TABLET (FP) PO SCH (11:01)
[2024-11-19] MEDS: PANTOPRAZOLE 40 MG TABLET PO SCH (11:34)
[2024-11-19] MEDS: CHOLECALCIFEROL (VIT D3) 400 UNIT (10 MCG) TABLET PO SCH (12:20)
[2024-11-19] MEDS: BUDESONIDE/FORMETEROL FUMARATE 160/4.5 mcg INHALER IH SCH (21:21)
[2024-11-20] MEDS ORDERED: amLODIPine BESYLATE 2.5 MG TABLET (FP) PO SCH (10:00)
[2024-11-20] MEDS ORDERED: metoPROLOL SUCCINATE 25 MG TAB.SR.24H (FP) PO SCH (10:00)
[2024-11-20] MEDS: amLODIPine BESYLATE 2.5 MG TABLET (FP) PO SCH (10:01)
[2024-11-22] MEDS: ARTIFICIAL TEARS OPHTHALMIC DROPS OD PRN (21:34)
[2024-11-25] MEDS: MAG HYDROX/AL HYDROX/SIMETH 30 ML UNIT-DOSE CUP PO PRN (21:23)
[2024-11-26] MEDS: NALTREXONE HCL 50 MG TABLET PO ONE (17:59)
[2024-11-27] MEDS: amLODIPine BESYLATE 5 MG TABLET (FP) PO SCH (10:15)
[2024-11-27] MEDS: NALTREXONE HCL 50 MG TABLET PO SCH (10:15)
[2024-11-28 11:17] VITALS: PULSE 73
[2024-11-28 22:54] VITALS: BP 149/89; RESP 17; TEMP 97.3
[2024-12-05] MEDS ORDERED: NALTREXONE MICROSPHERES (VIVITROL) 380 MG DISP.SYRIN IM ONE (10:00)
== END 2024-11-28 23:35 | disposition left against medical advice (07) | DRG 770 ==
LOC: YASAS 16:50 → Y3E 21:06
PROVIDERS: ADMIT Psychiatry & Neurology Pain Medicine; ATTEND Psychiatry & Neurology Pain Medicine
PROC: HZ42ZZZ Group Counseling for Substance Abuse Treatment, Cognitive-Behavioral (ICD-10-PCS; principal; 2024-11-07)
DX: F10.20 Alcohol dependence, uncomplicated (principal); F14.20 Cocaine dependence, uncomplicated; F17.210 Nicotine dependence, cigarettes, uncomplicated; E78.5 Hyperlipidemia, unspecified; H91.8X1 Other specified hearing loss, right ear; I10 Essential (primary) hypertension; J44.9 Chronic obstructive pulmonary disease, unspecified; K21.9 Gastro-esophageal reflux disease without esophagitis; N40.0 Benign prostatic hyperplasia without lower urinary tract symptoms
CPT/HCPCS: 36415; 71045-TC-FY; 80053; 80305; 80307; 81003; 85027; 86780; 86803; 87811; 93005; 93010; J0475